=== PATIENT | male | born 1950 | race Caucasian/White ===

== ENCOUNTER 2017-12-04 01:33 | Inpatient (IN) | payer MEDICARE, SELFPAY ==
[2017-12-04] MEDS ORDERED: Nitroglycerin 4.9 GM Bottle ONE (01:47)
[2017-12-04] MEDS ORDERED: Nitroglycerin 0.4 MG TAB (25 Tab Bottle) ONE (01:48)
[2017-12-04] MEDS ORDERED: Aspirin 325 MG TAB ONE (01:50)
[2017-12-04 02:00] LABS: #Basophils 0.1 thou/uL (0.0-0.2); #Eosinphils 0.1 thou/uL (0.0-0.7); #Lymphocytes 2.3 thou/uL (1.20-3.40); #Monocytes 0.6 thou/uL (0.11-0.59); #Neutrophils 5.5 thou/uL (1.40-6.50); %Eosinophils 1.3 % (0.0-10.0); %Lymphocytes 26.8 % (21.0-51.0); %Neutrophils 63.9 % (42.0-75.0); Hemoglobin 14.7 g/dL (14.0-18.0); Mean Corpuscular Hemoglobin 28.8 pg (27.0-31.0); Mean Corpuscular Volume 84.7 fL (78.0-98.0); Platelet Count 157 thou/uL (130-400); RBC Distribution Width 11.7 % (11.5-14.5); Red Blood Cell (RBC) Count 5.09 mill/uL (4.70-6.10); White Blood Cell (WBC) Count 8.6 thou/uL (4.8-10.8)
[2017-12-04 02:11] LABS: ALT (SGPT) 22 U/L (8-55); AST (SGOT) 44 U/L (5-34); Albumin 4.6 g/dL (3.4-4.8); Alkaline Phosphatase 67 U/L (40-150); Anion Gap 16 mmol/L (10-20); BUN (Urea Nitrogen) 21 mg/dL (8.4-25.7); Bilirubin, Total 0.9 mg/dL (0.2-1.2); CK (CPK) 583 U/L (30-200); Calc. Creatinine Clearance 0 mL/min (70-130); Calcium 9.7 mg/dL (7.8-10.44); Carbon Dioxide 22 mmol/L (23-31); Chloride 105 mmol/L (98-107); Estimated GFR-MDRD 68; Globulin 3.3 g/dL (2.4-3.5); Glucose 124 mg/dL (80-115); Potassium 3.5 mmol/L (3.5-5.1); Protein, Total 7.9 g/dL (5.8-8.1); Sodium 139 mmol/L (136-145)
[2017-12-04] MEDS ORDERED: Morphine 4 MG/ML Carpuject ONE (02:14)
[2017-12-04] MEDS ORDERED: Enoxaparin Sodium 80 MG/0.8 ML SYRINGE ONE (03:51)
[2017-12-04 05:18] LABS: Troponin I 8.048 ng/mL (< 0.028)
[2017-12-04 05:43] VITALS: BMI 21.4
--- NOTE | 2017-12-04 05:46 | RAD ---
RADIOGRAPH CHEST FRONTAL VIEW: CLINICAL INDICATIONS: Chest pain. COMPARISON: No prior comparison. FINDINGS: There is no evidence of lobar consolidation, effusion, or pneumothorax. The cardiac silhouette is pr ominent, and there is evidence of a prior sternotomy with mild vascular congestion. Interstitial pro minence is seen bilaterally. There is slight blunting of the left lateral costophrenic sulcus. IMPRESSION: Findings indicating congestive heart failure. A slight degree of left pleural fluid is suggested, al valeriy with interstitial edema. Continued imaging followup may prove useful. POS: TAYLOR
[2017-12-04] MEDS ORDERED: Ondansetron HCl/PF 4 MG/2 ML Vial IVP PRN (06:31)
--- NOTE | 2017-12-04 06:31 | PDOC.FPRHP ---
- History of Present Illness Chief Complaint: chest pain History of Present Illness: Patient is a 67YOM with a PMH of CAD s/p 2-vessel CABG & A. fib who presented to the ED with a chief complaint of chest pain that began around 6PM yesterday evening. The patient stated that he had more than likely overexerted himself doing yard work all day yesterday. He reports that around 6PM while he was lying in bed he began to feel some pain in the back of both of his arms and some central chest pain. He describes the pain as a pressure-like feeling that radiated to his back. He stated that the pain progressively worsened over the course of the evening and by about 10:30 that night he could no longer bear it and told his to take him to the ED. The patient endorses some associated diaphoresis and feeling clammy but denied any N/V or SOB. ED Course: Patient was given full dose lovenox, IV morphine, ASA. He was SL nitroglycerin x 2 which relieved his pain. - Allergies/Adverse Reactions Allergies Allergy/AdvReac Type Severity Reaction Status Date / Time No Known Allergies Allergy Verified 12/04/17 05:42 - Home Medications Medication Instructions Recorded Confirmed Type Aspirin [Ecotrin] 81 mg PO DAILY 12/04/17 12/04/17 History Atorvastatin Calcium [Lipitor] 80 mg PO HS 12/04/17 12/04/17 History Clopidogrel Bisulfate [Plavix] 75 mg PO DAILY 12/04/17 12/04/17 History - History PMHx: CAD s/p CABG x2, atrial fibrillation PSHx: Right knee arthroscopy, CABG Social: Smoked 1-1.5ppd since he was 13. - Review of Systems General: denies: fever/chills, fatigue Eyes: denies: eye pain, vision changes ENT: denies: nasal congestion, rhinorrhea Respiratory: denies: cough, shortness of breath Cardiovascular: reports: chest pain. denies: palpitation, edema Gastrointestinal: denies: nausea, vomiting Genitourinary: denies: dysuria, polyuria Skin: denies: rashes, jaundice Musculoskeletal: denies: tenderness, stiffness, swelling Neurological: denies: syncope, seizure - Vital signs BP: 136/80 HR: 81 RR: 18 Tmax: 98.7 Pox: 95% on RA Wt: 65kg - Physical Exam Constitutional: NAD, awake, alert and oriented, well developed HEENT: normocephalic and atraumatic, conjunctiva clear, grossly normal vision, grossly normal hearing Neck: FROM Chest: no-tender to palpation Heart: RRR, normal S1/S2, no murmurs/rubs/gallops, no edema Lungs: CTAB, no respiratory distress, no rales/rhonchi, no wheezing Abdomen: soft, non-tender, bowel sounds present Musculoskeletal: normal structure, normal tone, ROM grossly normal Neurological: no focal deficit, CN II-XII intact, normal sensation Skin: no rash/lesions, good turgor Heme/Lymphatic: no unusual bruising or bleeding Psychiatric: normal mood and affect, good judgment and insight, intact recent and remote memory FMR H&P: Results - Labs Result Diagrams: 12/04/17 01:40 12/04/17 01:40 Lab results: WBC 8.6 thou/uL (4.8-10.8) 12/04/17 01:40 Hgb 14.7 g/dL (14.0-18.0) 12/04/17 01:40 Hct 43.1 % (42.0-52.0) 12/04/17 01:40 MCV 84.7 fL (78.0-98.0) 12/04/17 01:40 Plt Count 157 thou/uL (130-400) 12/04/17 01:40 Neutrophils % 63.9 % (42.0-75.0) 12/04/17 01:40 Sodium 139 mmol/L (136-145) 12/04/17 01:40 Potassium 3.5 mmol/L (3.5-5.1) 12/04/17 01:40 Chloride 105 mmol/L (98-107) 12/04/17 01:40 Carbon Dioxide 22 mmol/L (23-31) L 12/04/17 01:40 BUN 21 mg/dL (8.4-25.7) 12/04/17 01:40 Creatinine 1.08 mg/dL (0.7-1.3) 12/04/17 01:40 Glucose 124 mg/dL (80-115) H 12/04/17 01:40 Calcium 9.7 mg/dL (7.8-10.44) 12/04/17 01:40 Total Bilirubin 0.9 mg/dL (0.2-1.2) 12/04/17 01:40 AST 44 U/L (5-34) H 12/04/17 01:40 ALT 22 U/L (8-55) 12/04/17 01:40 Alkaline Phosphatase 67 U/L (40-150) 12/04/17 01:40 Creatine Kinase 583 U/L (30-200) H 12/04/17 01:40 Serum Total Protein 7.9 g/dL (5.8-8.1) 12/04/17 01:40 Albumin 4.6 g/dL (3.4-4.8) 12/04/17 01:40 - Radiology Interpretation Chest x-ray Status: report reviewed by me (Findings indicative of CHF. Slight degree of L pleural effusion with interstitial edema.) FMR H&P: A/P - Problem List (1) NSTEMI (non-ST elevated myocardial infarction) Current Visit: Yes Status: Acute Code(s): I21.4 - NON-ST ELEVATION (NSTEMI) MYOCARDIAL INFARCTION (2) Elevated troponin Current Visit: Yes Status: Acute Code(s): R74.8 - ABNORMAL LEVELS OF OTHER SERUM ENZYMES (3) CAD (coronary artery disease) Current Visit: Yes Status: Chronic Code(s): I25.10 - ATHSCL HEART DISEASE OF [place] CORONARY ARTERY W/O ANG PCTRS Qualifiers: Coronary Disease-Associated Artery/Lesion type: bypass graft Associated angina: with unstable angina (4) H/O atrial fibrillation without current medication Current Visit: Yes Status: Chronic Code(s): Z86.79 - PERSONAL HISTORY OF OTHER DISEASES OF THE CIRCULATORY SYSTEM - Plan 67YOM with a PMH of CAD s/p CABG x2 who presented to the ED complaining of progressively worsening chest pain that radiated to both arms and his back that began around 18:00 last night. 1. NSTEMI: - Patient was given full dose lovenox in the ED. Ordered next scheduled dose. Will continue full anticoagulation dosing Q12H. - Will continue SL nitro and IV morphine PRN for pain control. - Troponin increased from 1 on presentation to the ED to 8 upon admission. Cardiology consulted. 2. h/o CAD s/p CABG: - Aware. - Will resume ASA, plavix, & statin. 3. atrial fibrillation: - Patient states his dewaterer operator instructed him to stop his a. fib medications. - RRR since admission. - Will continue to monitor. FMR H&P: Upper Level - Pertinent history Camden Kidd is a 67 year old female who is a transfer from the [facility] ER due to NSTEMI. He presented to the ED due to symptoms of squeezing substernal chest pressure accompanied by pain in his bilateral posterior upper arms. Pt believes the pain was related to overworking himself in the home/doing yard work. The pain was 6/10 at it's worst and was relieved by the medications ( including ASA, morphine, Nitro) he received in the ED. He denied dyspnea, nausea , and vomiting. His initial Troponin was 1.14 EKG did not show evidence of ischemia. He was given a dose of therapeutic lovenox prior to transfer. Of note, patient has a history of CAD with a 2-vessel CABG in 2004. - Pertinent findings Troponins 1.14, 8.048 EKG: Normal sinus rhythm, no evidence of ischemia. - Plan Date/Time: 12/04/17 2422 I, Kim Caldwell, have evaluated this patient and agree with findings/plan as outlined by mechanical intern resident. Pertinent changes/additions are listed here. NSTEMI - cardiology was consulted; likely plan for [facility] today. Pt kept NPO prior to procedure. - continue therapeutic lovenox and ASA - Morphine, Nitro for pain. - Consider addition of B-jah and KAN as patient can tolerate. CAD - Pt on ASA and Statin/Plavix at home; will need to find doses of home medications. Tobacco abuse - pt has heavy smoking history. - He is uninterested in quitting. Attending Addendum - Attending Addendum Date/Time: 12/04/17 9483 I personally evaluated the patient and discussed the management with Dr. Valencia. I agree with the History, Examination, Assessment and Plan documented above with any addition or exceptions noted below. The patient was admitted for chest pain and found to have an NSTEMI. He has been seen by cardiology and had a cath this morning. He had 1 stent placed and is resting comfortably. Will follow-up with cardiology recs. Additional diagnosis include CAD, Atrial fibrillation. Will branch credit counselor on smoking cessation.
[2017-12-04] MEDS ORDERED: Nitroglycerin 0.4 MG TAB (25 Tab Bottle) SL PRN (06:35)
[2017-12-04] MEDS ORDERED: Morphine 4 MG/ML VIAL IV PRN (07:00)
[2017-12-04] MEDS ORDERED: Lidocaine 1% (PF) 30 ML VIAL ONE (07:37)
[2017-12-04] MEDS ORDERED: Midazolam HCl 2 mg/2 ml Vial ONE (08:00)
[2017-12-04] MEDS ORDERED: Fentanyl 100 MCG/2 ML VIAL ONE (08:00)
[2017-12-04] MEDS: Aspirin 81 mg Enteric Coated Tablet PO SCH (08:16)
--- NOTE | 2017-12-04 08:17 | CON ---
DATE OF CONSULTATION: 12/04/2017 REASON FOR CONSULTATION: Unstable angina. PRIMARY COMMUNICATIONS EXECUTIVE: None. HISTORY OF PRESENT ILLNESS: Mr. Kidd is a very pleasant 67-year-old gentleman from [facility]. He mainly receives his cardiac care in [place], [place]. He has a history of CAD status post by pass surgery x2 vessels, unknown areas in 2006. He continues to smoke. He states he was doing well. He states he was working too hard. He developed acute onset chest pain . It lasted for several hours. He is still having mild pain, but not nearly as severe as he was whe n he presented. His troponin went from 0.3-1-8. PAST MEDICAL HISTORY: CAD status post bypass surgery, atrial fibrillation, not on anticoagulation th godfrey after discussion with primary ticket dispatcher. PAST SURGICAL HISTORY: Knee surgery. SOCIAL HISTORY: No alcohol use. Positive tobacco use. HOME MEDICATIONS: Plavix, aspirin and atorvastatin. REVIEW OF SYSTEMS: Ten point review of systems is reviewed and as above, otherwise negative. PHYSICAL EXAMINATION: GENERAL: Patient is a pleasant male/female who is in no acute distress. The patient appears his/her stated age. VITAL SIGNS: Blood pressure 146/87, pulse 60, temperature 99.3. NEUROLOGIC: The patient is alert and oriented times 3 with no focal neurologic deficits. HEENT: Sclerae without icterus. Mouth has moist mucous membranes with normal pallor. NECK: No JVD. Carotid upstroke brisk. No bruits bilaterally. LUNGS: Clear to auscultation with unlabored respirations. BACK: No scoliosis or kyphosis. CARDIAC: Regular rate and rhythm with normal S1 and S2. No S3 or S4 noted. No significant rubs, mu rmurs, thrills, or gallops noted throughout the precordium. PMI is not displaced. There is no tristan ternal heave. ABDOMEN: Soft, nontender, nondistended. No peritoneal signs present. No hepatosplenomegaly. No ab normal striae. EXTREMITIES: 2+ femoral and 2+ dorsalis pedis pulses. No cyanosis, clubbing, or edema. SKIN: No gross abnormalities. PERTINENT LABORATORTY DATA: Hemoglobin 14.7. Peak troponin 8, CK of 583, AST 44, ALT of 22, hemoglo bin 14.7. IMAGING: EKG: Normal sinus rhythm with nonspecific ST-T wave changes. IMPRESSION: 1. Non-Q myocardial infarction. 2. Unstable angina. 3. Coronary artery disease. 4. Status post bypass surgery. 5. Tobacco abuse. RECOMMENDATIONS: Mr. Kidd's symptoms certainly suggest unstable angina. At this point, he would be nefit from a more aggressive approach. We would recommend coronary angiography plus PCI. I discusse d the procedure in full detail with Mr. Kidd. I discussed the procedure in full detail with the bao ient. The risks of the procedure were also discussed. The risks of the procedure include but are no t limited to the following: , stroke, [place], need for emergency surgery, loss of limb, bleeding, a nd infection, as well as a reaction to the dye causing kidney failure and needing long-term dialysis. I also discussed the risks of PCI to include all of the above including coronary dissection and per foration in addition to acute stent thrombosis and restenosis. All questions about the procedure wer e answered. Given the above, the patient agreed to proceed with coronary angiography and possible PC I. All questions were answered. I also discussed drug-coated versus nondrug-coated stent placement. There are no contraindications, we will proceed if needed. Further recommendations pending the abov e. I also discussed tobacco cessation with Mr. Kidd.
[2017-12-04] MEDS ORDERED: Heparin 10,000 UNITS/1 ML VIAL ONE (08:58)
[2017-12-04] MEDS ORDERED: Enoxaparin Sodium 80 MG/0.8 ML SYRINGE SC SCH (09:00)
[2017-12-04] MEDS ORDERED: Sodium Chloride 0.9% 1,000 ML IV SCH (09:15)
[2017-12-04] MEDS ORDERED: Iopamidol 370 76% 50 ML VIAL FS ONE (10:22)
[2017-12-04] MEDS ORDERED: Iopamidol 370 76% 100 ML VIAL ONE (10:22)
[2017-12-04 11:45] LABS: Troponin I 40.675 ng/mL (< 0.028)
[2017-12-04] MEDS ORDERED: Enoxaparin Sodium 60 MG/0.6 ML SYRINGE SC SCH (16:00)
--- NOTE | 2017-12-04 19:10 | PDOC.FM ---
- Objective MAR Reviewed: Yes Vital Signs & Weight: Vital Signs (12 hours) Temp Pulse Resp BP Pulse Ox 12/04/17 15:28 99 F 73 14 133/89 95 12/04/17 11:54 99 F 65 14 140/87 95 12/04/17 09:09 99 F 67 14 151/87 H 95 12/04/17 08:00 99.3 F 68 16 95 12/04/17 07:44 99.3 F 68 16 146/87 H 95 Weight Weight 65.816 kg I&O: 12/03/17 12/04/17 12/05/17 06:59 06:59 06:59 Intake Total 1960 Output Total 650 Balance 1310 Result Diagrams: 12/04/17 01:40 12/04/17 01:40 <Liya Ling - Last Filed: 12/04/17 19:08> - Subjective Subjective: The patient's chest pain has resolved. The patient expressed a desire to go home. - Objective Vital Signs & Weight: Vital Signs (12 hours) Temp Pulse Resp BP Pulse Ox 12/05/17 12:36 98.2 F 80 16 118/84 96 12/05/17 07:23 97.7 F 70 16 133/80 98 12/05/17 03:51 99.1 F 86 17 127/84 96 Weight Weight 65.816 kg I&O: 12/04/17 12/05/17 12/06/17 06:59 06:59 06:59 Intake Total 1960 120 Output Total 650 Balance 1310 120 Result Diagrams: 12/05/17 04:18 12/05/17 04:18 <Amanda Trujillo - Last Filed: 12/05/17 13:35> Phys Exam - Physical Examination Constitutional: NAD HEENT: TM's clear Psychiatric: normal affect, A&O x 3 <Liya Ling - Last Filed: 12/04/17 19:08> Dx/Plan (1) NSTEMI (non-ST elevated myocardial infarction) Code(s): I21.4 - NON-ST ELEVATION (NSTEMI) MYOCARDIAL INFARCTION Status: Acute (2) H/O atrial fibrillation without current medication Code(s): Z86.79 - PERSONAL HISTORY OF OTHER DISEASES OF THE CIRCULATORY SYSTEM Status: Chronic - Plan Plan: 67 yo M with NSTEMI s/p cardiac cath 1. NSTEMI s/p cardiac cath -cardiac cath this am -continue plavix, aspirin 2. Afib without medication -continue to monitor <Liya Ling - Last Filed: 12/04/17 19:08> (1) NSTEMI (non-ST elevated myocardial infarction) Code(s): I21.4 - NON-ST ELEVATION (NSTEMI) MYOCARDIAL INFARCTION Status: Acute (2) Elevated troponin Code(s): R74.8 - ABNORMAL LEVELS OF OTHER SERUM ENZYMES Status: Acute (3) CAD (coronary artery disease) Code(s): I25.10 - ATHSCL HEART DISEASE OF [place] CORONARY ARTERY W/O ANG PCTRS Status: Chronic Qualifiers: Coronary Disease-Associated Artery/Lesion type: bypass graft Associated angina: with unstable angina (4) H/O atrial fibrillation without current medication Code(s): Z86.79 - PERSONAL HISTORY OF OTHER DISEASES OF THE CIRCULATORY SYSTEM Status: Chronic <Amanda Trujillo - Last Filed: 12/05/17 13:35> Attending Addendum - Attending Addendum Date/Time: 12/05/17 1375 I personally evaluated the patient and discussed the management with Dr. Ling. I agree with the History, Examination, Assessment and Plan documented above with any addition or exceptions noted below. The patient is feeling better. We will f/u with cardiology regarding recommendations. Additional diagnoses include CAD and tobacco abuse. Restarting high-intensity statin. <Amanda Trujillo - Last Filed: 12/05/17 13:35>
[2017-12-05 04:47] LABS: #Eosinphils 0.1 thou/uL (0.0-0.7); #Lymphocytes 2.7 thou/uL (1.20-3.40); #Monocytes 0.7 thou/uL (0.11-0.59); %Basophils 0.4 % (0.0-1.0); %Lymphocytes 40.9 % (21.0-51.0); %Monocytes 11.1 % (0.0-10.0); %Neutrophils 45.6 % (42.0-75.0); Hemoglobin 13.9 g/dL (14.0-18.0); Mean Corpuscular HGB CONC 33.7 g/dL (32.0-36.0); Mean Corpuscular Hemoglobin 30.7 pg (27.0-31.0); Mean Corpuscular Volume 91.1 fL (78.0-98.0); Mean Platelet Volume 6.6 fL (7.4-10.4); Platelet Count 130 thou/uL (130-400); RBC Distribution Width 12.2 % (11.5-14.5); Red Blood Cell (RBC) Count 4.53 mill/uL (4.70-6.10); White Blood Cell (WBC) Count 6.5 thou/uL (4.8-10.8)
[2017-12-05 05:16] LABS: ALT (SGPT) 36 U/L (8-55); AST (SGOT) 136 U/L (5-34); Albumin 3.9 g/dL (3.4-4.8); Alkaline Phosphatase 63 U/L (40-150); Anion Gap 13 mmol/L (10-20); BUN (Urea Nitrogen) 11 mg/dL (8.4-25.7); Bilirubin, Total 1.9 mg/dL (0.2-1.2); Calc. Creatinine Clearance 82 mL/min (70-130); Calcium 8.7 mg/dL (7.8-10.44); Carbon Dioxide 20 mmol/L (23-31); Chloride 106 mmol/L (98-107); Estimated GFR-MDRD Greater than 90; Globulin 2.8 g/dL (2.4-3.5); Glucose 88 mg/dL (80-115); Potassium 3.8 mmol/L (3.5-5.1); Protein, Total 6.7 g/dL (5.8-8.1); Sodium 135 mmol/L (136-145)
--- NOTE | 2017-12-05 06:14 | PDOC.FM ---
- Subjective Subjective: No acute events overnight. c/o of mild pain at femoral cath site. - Objective MAR Reviewed: Yes Vital Signs & Weight: Vital Signs (12 hours) Temp Pulse Resp BP Pulse Ox 12/05/17 03:51 99.1 F 86 17 127/84 96 12/04/17 19:39 98.7 F 70 18 127/84 95 Weight Weight 65.816 kg I&O: 12/03/17 12/04/17 12/05/17 06:59 06:59 06:59 Intake Total 1960 Output Total 650 Balance 1310 Result Diagrams: 12/05/17 04:18 12/05/17 04:18 <Liya Ling - Last Filed: 12/05/17 09:17> - Objective Vital Signs & Weight: Vital Signs (12 hours) Temp Pulse Resp BP Pulse Ox 12/05/17 15:58 98.7 F 82 18 122/84 94 L 12/05/17 12:36 98.2 F 80 16 118/84 96 12/05/17 07:25 98.2 F 80 16 12/05/17 07:23 97.7 F 70 16 133/80 98 Weight Weight 65.816 kg I&O: 12/04/17 12/05/17 12/06/17 06:59 06:59 06:59 Intake Total 1960 360 Output Total 650 Balance 1310 360 Result Diagrams: 12/05/17 04:18 12/05/17 04:18 <Amanda Solis - Last Filed: 12/05/17 17:07> Phys Exam - Physical Examination Constitutional: NAD Cardiovascular: RRR, no significant murmur Psychiatric: A&O x 3 <Liya Ling - Last Filed: 12/05/17 09:17> Dx/Plan (1) NSTEMI (non-ST elevated myocardial infarction) Code(s): I21.4 - NON-ST ELEVATION (NSTEMI) MYOCARDIAL INFARCTION Status: Acute (2) H/O atrial fibrillation without current medication Code(s): Z86.79 - PERSONAL HISTORY OF OTHER DISEASES OF THE CIRCULATORY SYSTEM Status: Chronic - Plan Plan: 67 yo M with NSTEMI s/p cardiac cath day 1 1. NSTEMI s/p cardiac cath -report: occluded LAD -Dr. Luther rx aggressive medical mgmt in report, f/u for when appropriate to d/c -continue anticoagulation/antiplts (aspirin/plavix) -pain: nitro, morphine 2. H/o paroxysmal afib without medications -continue to monitor, asx at this time -pt expressed not wanting to take meds at this time, hasn't been on meds diet: HH dvt ppx: lovenox discussed with dr. solis <Liya Ling - Last Filed: 12/05/17 09:17> (1) NSTEMI (non-ST elevated myocardial infarction) Code(s): I21.4 - NON-ST ELEVATION (NSTEMI) MYOCARDIAL INFARCTION Status: Acute (2) Elevated troponin Code(s): R74.8 - ABNORMAL LEVELS OF OTHER SERUM ENZYMES Status: Acute (3) CAD (coronary artery disease) Code(s): I25.10 - ATHSCL HEART DISEASE OF [place] CORONARY ARTERY W/O ANG PCTRS Status: Chronic Qualifiers: Coronary Disease-Associated Artery/Lesion type: bypass graft Associated angina: with unstable angina (4) H/O atrial fibrillation without current medication Code(s): Z86.79 - PERSONAL HISTORY OF OTHER DISEASES OF THE CIRCULATORY SYSTEM Status: Chronic <Amnada Solis - Last Filed: 12/05/17 17:07> Attending Addendum - Attending Addendum Date/Time: 12/05/17 6126 I personally evaluated the patient and discussed the management with Dr. Ling. I agree with the History, Examination, Assessment and Plan documented above with any addition or exceptions noted below. Pt is feeling much better. He wants to go home. Will restart statin. We will check with cardiology on recs. <Amanda Solis - Last Filed: 12/05/17 17:07>
[2017-12-05] MEDS ORDERED: Enoxaparin Sodium 40 MG/0.4 ML SYRINGE SC SCH (09:00)
--- NOTE | 2017-12-05 09:36 | CCL ---
ADDENDUM: The patient underwent urgent coronary angiography after the patient was found to have a troponin of 8. This was performed on 12/04/2017. Angiography did suggest acutely occluded saphenous vein graft to the diagonal branch. Adequate antic oagulation was given. A Luge wire was placed successfully. Multiple passes x6 were performed with P ronto catheter. This did not pass to what appeared to be the anastomosis of the saphenous vein graft to the diagonal branch. A 2.0 balloon catheter was then placed. Four inflations were performed wit hin the area of interest. There continued to be no flow into the diagonal branch. I did review with Dr. Derek Cox. At this point, given a heavy thrombus in the graft and contin ued no flow, it was decided to abort the procedure and not proceed with any further intervention. Th e diagonal branch diameter was never visualized. There is also concern for no reflow with permanent necrosis present if no free flow were to occur. The patient was pain free at the end of the study. POS: ESMER
[2017-12-05] MEDS: Aspirin 81 mg Enteric Coated Tablet PO SCH (09:51)
[2017-12-05] MEDS: Clopidogrel Bisulfate 75 MG TAB PO SCH (09:51)
--- NOTE | 2017-12-05 12:03 | EKG ---
Test Reason : POST STENT Blood Pressure : / mmHG Vent. Rate : 063 BPM Atrial Rate : 063 BPM P-R Int : 112 ms QRS Dur : 092 ms QT Int : 440 ms P-R-T Axes : 055 064 091 degrees QTc Int : 450 ms Normal sinus rhythm Nonspecific T wave abnormality V4-V6. Abnormal ECG No previous ECGs available Confirmed by WILFRID PATEL ([id number]) on 12/05/2017 12:02:49 PM Referred By: DAY Confirmed By:WILFRID PATEL
--- NOTE | 2017-12-05 12:12 | EKG ---
Test Reason : Blood Pressure : / mmHG Vent. Rate : 068 BPM Atrial Rate : 068 BPM P-R Int : 112 ms QRS Dur : 090 ms QT Int : 418 ms P-R-T Axes : 062 066 136 degrees QTc Int : 444 ms Normal sinus rhythm Abnormal ECG When compared with ECG of 04-DEC-2017 10:08, (Unconfirmed) T wave inversion is more prominent than previous tracing. Confirmed by WILFRID PATEL ([id number]) on 12/05/2017 12:12:01 PM Referred By: DAY Confirmed By:WILFRID PATEL
--- NOTE | 2017-12-05 18:58 | PDOC.CTH ---
Cardiology Progress Note - Subjective Feels good overall - Objective Vital Signs Temp Pulse Resp BP Pulse Ox 12/05/17 15:58 98.7 F 82 18 122/84 94 L 12/05/17 12:36 98.2 F 80 16 118/84 96 12/05/17 07:25 98.2 F 80 16 12/05/17 07:23 97.7 F 70 16 133/80 98 Weight 145 lb 1.6 oz 12/04/17 12/05/17 12/06/17 06:59 06:59 06:59 Intake Total 1960 1300 Output Total 650 Balance 1310 1300 - Physical Examination General/Neuro: alert & oriented x3, NAD Neck: carotid US brisk, no JVD present Lungs: CTA, unlabored respirations Heart: PMI normal, RRR Abdomen: no HSM, NT/ND, soft Extremities: + femoral B - Labs Result Diagrams: 12/05/17 04:18 12/05/17 04:18 Troponin/CKMB Troponin I 40.675 ng/mL (< 0.028) H* 12/04/17 10:22 - Assessment/Plan 1. CA CAD s/p CABG tob use Pt doing well post CA Stop smoking BB and ACEI ASA and plavix and statin ok for dc in am if stable
[2017-12-05] MEDS ORDERED: Atorvastatin Calcium 40 MG TAB PO SCH (21:00)
--- NOTE | 2017-12-06 06:31 | PDOC.FM ---
- Subjective Subjective: No acute events overnight. Denies CP. No other complaints. - Objective MAR Reviewed: Yes Vital Signs & Weight: Vital Signs (12 hours) Temp Pulse Resp BP Pulse Ox 12/06/17 04:00 98.3 F 85 16 111/77 92 L 12/05/17 19:31 97.9 F 94 18 120/76 92 L Weight Weight 65.816 kg I&O: 12/04/17 12/05/17 12/06/17 06:59 06:59 06:59 Intake Total 1959 1300 Output Total 650 Balance 1310 1300 Result Diagrams: 12/05/17 04:18 12/05/17 04:18 <Liya Ling - Last Filed: 12/06/17 11:31> - Objective Vital Signs & Weight: Vital Signs (12 hours) Temp Pulse Pulse Pulse Resp BP BP 12/06/17 16:12 78 12/06/17 11:37 98.2 F 83 16 12/06/17 10:06 115/77 12/06/17 09:58 88 95 102/75 12/06/17 07:46 98.1 F 87 16 BP BP BP Pulse Ox Pulse Ox Pulse Ox 12/06/17 16:12 103/75 12/06/17 11:37 102/75 93 L 12/06/17 10:06 12/06/17 09:58 115/77 95 97 12/06/17 07:46 112/88 95 Weight Weight 65.816 kg I&O: 12/05/17 12/06/17 12/07/17 06:59 06:59 06:59 Intake Total 1959 1300 Output Total 650 Balance 1310 1300 Result Diagrams: 12/05/17 04:18 12/05/17 04:18 <Amanda Solis - Last Filed: 12/06/17 19:24> Phys Exam - Physical Examination Constitutional: NAD HEENT: moist MMs, TM's clear Neck: supple, full ROM Respiratory: no wheezing, no rales, clear to auscultation bilateral Cardiovascular: RRR, no significant murmur, no rub, gallop Gastrointestinal: soft, non-tender, no distention Musculoskeletal: no edema, pulses present Neurological: moves all 4 limbs Psychiatric: normal affect, A&O x 3 Skin: no rash, normal turgor <Liya Ling - Last Filed: 12/06/17 11:31> Dx/Plan (1) NSTEMI (non-ST elevated myocardial infarction) Code(s): I21.4 - NON-ST ELEVATION (NSTEMI) MYOCARDIAL INFARCTION Status: Acute (2) H/O atrial fibrillation without current medication Code(s): Z86.79 - PERSONAL HISTORY OF OTHER DISEASES OF THE CIRCULATORY SYSTEM Status: Chronic (3) Tobacco abuse Code(s): Z72.0 - TOBACCO USE Status: Acute (4) Tobacco abuse counseling Code(s): Z71.6 - TOBACCO ABUSE COUNSELING Status: Acute (5) S/P cardiac cath Status: Acute (6) CAD (coronary artery disease) Code(s): I25.10 - ATHSCL HEART DISEASE OF [place] CORONARY ARTERY W/O ANG PCTRS Status: Chronic Qualifiers: Coronary Disease-Associated Artery/Lesion type: bypass graft Associated angina: with unstable angina - Plan Plan: 67 yo M with NSTEMI s/p cardiac cath 1. NSTEMI s/p cardiac cath -stable, able to d/c this am and follow up in office per dr. morocho, thank you for recommendations -continue statin, ASA, plavix, BB, ACEI 2. H/o paroxysmal afib without medications -continue to monitor, asx at this time -pt expressed not wanting to take meds at this time, hasn't been on meds 3. CAD -MD aware, continue medications listed above 4. Tobacco abuse -counseled, pt not interested in quitting at this time diet: HH dvt ppx: lovenox dispo: d/c today with f/u with leather flesher and PCP discussed with dr. solis <Liya Ling - Last Filed: 12/06/17 11:31> (1) NSTEMI (non-ST elevated myocardial infarction) Code(s): I21.4 - NON-ST ELEVATION (NSTEMI) MYOCARDIAL INFARCTION Status: Acute (2) Elevated troponin Code(s): R74.8 - ABNORMAL LEVELS OF OTHER SERUM ENZYMES Status: Acute (3) CAD (coronary artery disease) Code(s): I25.10 - ATHSCL HEART DISEASE OF [place] CORONARY ARTERY W/O ANG PCTRS Status: Chronic Qualifiers: Coronary Disease-Associated Artery/Lesion type: bypass graft Associated angina: with unstable angina (4) H/O atrial fibrillation without current medication Code(s): Z86.79 - PERSONAL HISTORY OF OTHER DISEASES OF THE CIRCULATORY SYSTEM Status: Chronic <Amanda Solis - Last Filed: 12/06/17 19:24> Attending Addendum - Attending Addendum Date/Time: 12/06/171923 I personally evaluated the patient and discussed the management with Dr. Ling. I agree with the History, Examination, Assessment and Plan documented above with any addition or exceptions noted below. The patient is feeling well. He was ambulating in the halls and denies chest pain. He is ready for discharge. <Amanda Solis - Last Filed: 12/06/17 19:24>
[2017-12-06] MEDS ORDERED: Carvedilol 3.125 MG TAB PO SCH ×2 (08:00)
[2017-12-06] MEDS ORDERED: Lisinopril 10 MG TAB PO SCH (09:00)
[2017-12-06] MEDS ORDERED: Enoxaparin Sodium 40 MG/0.4 ML SYRINGE SC SCH (09:00)
[2017-12-06] MEDS: Clopidogrel Bisulfate 75 MG TAB PO SCH (09:24)
[2017-12-06] MEDS: Aspirin 81 mg Enteric Coated Tablet PO SCH (09:24)
[2017-12-06 11:40] VITALS: TEMP 98.2
[2017-12-06 16:13] VITALS: BP 103/75
--- NOTE | 2017-12-07 08:50 | PRG ---
DATE OF SERVICE: 12/06/2017 SUBJECTIVE: Mr. Kidd is doing well, no current complaints. He is currently ambulating without issu es. No chest pain or pressure noted. His AST has been elevated. OBJECTIVE: VITAL SIGNS: Blood pressure 102/75, pulse 83, temperature 98.2. LUNGS: Clear to auscultation. CARDIOVASCULAR: Regular rate and rhythm. ABDOMEN: Soft, nontender, nondistended. EXTREMITIES: No edema. LABORATORY DATA: Hemoglobin 13.9, hematocrit 41.3. Peak troponin 40. IMPRESSION: 1. Non-Q wave myocardial infarction. 2. Tobacco abuse. 3. Coronary artery disease. 4. Status post bypass surgery. RECOMMENDATIONS: Patient appears to be doing well. We would recommend discharge from my standpoint. We will continue beta jah therapy in addition to KAN inhibitor therapy, aspirin, and Plavix. W e would hold statin therapy due to elevated AST, ALT. Echo with Doppler has been ordered. He is uns ure whether he wants to stay for the echo. We will leave at his discretion. He would like to follow up with primary chute boss in [place].
== END 2017-12-06 16:25 | disposition home or self-care (01) | DRG 250 ==
LOC: SCSER 01:33 → 2NO 05:29
PROVIDERS: ADMIT Emergency Medicine; ATTEND Emergency Medicine
PROC: 02703ZZ Dilation of Coronary Artery, One Artery, Percutaneous Approach (ICD-10-PCS; principal; 2017-12-04)
PROC: B2181ZZ Fluoroscopy of Left Internal Mammary Bypass Graft using Low Osmolar Contrast (ICD-10-PCS; 2017-12-04)
PROC: B21F1ZZ Fluoroscopy of Other Bypass Graft using Low Osmolar Contrast (ICD-10-PCS; 2017-12-04)
DX: I25.700 Atherosclerosis of coronary artery bypass graft(s), unspecified, with unstable angina pectoris (principal); I21.4 Non-ST elevation (NSTEMI) myocardial infarction; Z79.82 Long term (current) use of aspirin; F17.210 Nicotine dependence, cigarettes, uncomplicated; Z96.651 Presence of right artificial knee joint; I48.0 Paroxysmal atrial fibrillation
CPT/HCPCS: 36415; 71045; 76942; 80053; 82248; 82550; 84484; 85025; 85347; 92920; 93005; 93010; 93306; 93455; 93798; 96372; 96374; 99152; 99153; A4216; C1725; C1757; C1760; C1769; C1887; J1644; J1650; J2001; J2250; J2270; J3010